=== PATIENT | female | born 1935 | race Caucasian/White ===

== ENCOUNTER → 2016-10-17 | Outpatient (CLI) | payer OTHER | LOC: FIMAGING 14:25 | DX: Z12.31 Encounter for screening mammogram for malignant neoplasm of breast (principal) | CPT/HCPCS: G0202 ==

== ENCOUNTER → 2017-01-12 | Outpatient (CLI) | payer OTHER | LOC: CIMAGING 14:33 | PROVIDERS: ATTEND Internal Medicine Nephrology | DX: N18.3 Chronic kidney disease, stage 3 (moderate) (principal) | CPT/HCPCS: 76770-PO ==

== ENCOUNTER → 2017-10-19 | Outpatient (CLI) | payer OTHER | LOC: FIMAGING 15:44 | PROVIDERS: ATTEND Family Medicine | DX: Z12.31 Encounter for screening mammogram for malignant neoplasm of breast (principal); Z80.3 Family history of malignant neoplasm of breast ==

== ENCOUNTER → 2018-03-15 | Outpatient (CLI) | payer OTHER | LOC: FIMAGING 10:01 | PROVIDERS: ATTEND Family Medicine | DX: Z13.820 Encounter for screening for osteoporosis (principal); M81.0 Age-related osteoporosis without current pathological fracture; Z87.81 Personal history of (healed) traumatic fracture ==

== ENCOUNTER 2018-06-07 16:05 | Emergency (ER) | payer OTHER ==
--- NOTE | 2018-06-07 16:34 | EDPHY ---
H & P Stated Complaint: dark stools Time Seen by Provider: 06/07/18 16:33 - Personal History Current Tetanus/Diphtheria Vaccine: Yes Current Tetanus Diphtheria and Acellular Pertussis (TDAP): Yes - Medical/Surgical History Hx Asthma: No Hx Chronic Respiratory Disease: No Hx Diabetes: No Hx Cardiac Disease: No Hx Renal Disease: Yes Hx Cirrhosis: No Hx Alcoholism: No Hx HIV/AIDS: No Hx Splenectomy or Spleen Trauma: No Other PMH: ORIF right hip 2005, urinary incont., hypothyroidism, depression, GERD, OP, - Social History Smoking Status: Never smoked Constitutional: Initial Vital Signs Temperature (C) 36.6 C 06/07/18 16:28 Heart Rate 73 06/07/18 16:28 Respiratory Rate 16 06/07/18 16:28 Blood Pressure 150/72 H 06/07/18 16:28 O2 Sat (%) 95 06/07/18 16:28 O2 Delivery Mode Room Air Allergies/Adverse Reactions: nitrofurantoin [From Macrobid] Allergy (Severe, Verified 06/07/18 16:25) Hives nitrofurantoin macrocrystalline [From Macrobid] Allergy (Severe, Verified 16:25) Hives Home Medications: Medication Instructions Recorded LEVOTHYROXINE SODIUM [Levoxyl 88 mcg PO DAILY 08/10/12 88mcg] Omeprazole 20 mg PO DAILY 08/10/12 Aspirin [Aspirin 81mg (OTC)] 81 mg PO DAILY 08/19/13 Cholecalciferol Vit D3 [Vitamin D3 1,000 units PO DAILY 08/19/13 1000 units (OTC)] Herbals/Supplements -Info Only 1 each PO AD 08/19/13 lamoTRIgine [Lamotrigine] 25 mg PO DAILY 08/19/13 Gabapentin [Neurontin 100 MG (RX)] 100 mg PO DAILY PRN 08/26/13 Mv,Ca,Min/FA/Herbal No.158 09/01/14 [[employer] Capsule] Oxybutynin Chloride 5 mg PO 09/01/14 PARoxetine HCL [Paxil 10mg (*)] 09/01/14 clonazePAM [Clonazepam] 09/01/14 Biotin 06/07/18 Iron 06/07/18 Medical Decision Making - Diagnostics Imaging Results: Imaging Impressions Abdomen CT 06/07/18 17:06 Impression: 1. Mild to moderate constipation. 2. No CT evidence of appendicitis, abscess or bowel obstruction. 3. There is some artifact along the superior anterior margin of the bladder related to right total hip replacement. Mass is felt to be possible but less likely. 4. Atrophic left kidney of indeterminate etiology. Findings discussed with Richard Gay MD at 17:57 hour, 06/07/2018. Imaging: Discussed imaging studies w/ call center director Radiologist, I viewed and interpreted images myself ED Course/Re-evaluation: CHIEF COMPLAINT: Melena HISTORY OF PRESENT ILLNESS: The patient is an 82 y/o female with a history of GERD on omeprazole who complains of black stool for the last 2 weeks. She cannot identify any obvious precipitating event. The first time she noticed a firm black stool. She is unsure how many episodes she is having daily, but reports the color has not changed since onset. She has intermittent associated crampy abdominal pain. She has never experienced these symptoms before. She denies lightheadedness, syncope, bleeding issues, dyspnea, chest pain, vomiting , fever, urinary symptoms. She takes a daily 81mg aspirin, but no anticoagulants. She has a history of a hysterectomy. REVIEW OF SYSTEMS: A comprehensive 10 system review of systems is otherwise negative aside from elements mentioned in the history of present illness and medical decision making. PHYSICAL EXAM: HR, BP, O2 Sat, RR. Temp noted General Appearance: Alert, well hydrated, appropriate, and non-toxic appearing. Head: Atraumatic without scalp tenderness or obvious injury Eyes: Pupils equal, round, reactive to light and accommodation, EOMI, no trauma , no injection. Nose: Atraumatic, no rhinorrhea, clear. Throat: There is no erythema or exudates, no lesions, normal tonsils, mucus membranes moist. Neck: Supple, nontender, no lymphadenopathy. Respiratory: No retractions, no distress, no wheezes, and no accessory muscle use. Lungs are clear to auscultation bilaterally. Cardiovascular: Regular rate and rhythm, no murmurs, rubs, or gallops. Good capillary refill all extremities. Gastrointestinal: Abdomen is soft, midepigastric tenderness, slightly distended upper abdomen, no masses, no rebound, no guarding, no peritoneal signs. Musculoskeletal: Normal active ROM of all extremities, atraumatic. Neurological: Alert, appropriate, and interactive. The patient has non-focal cranial nerves, motor, sensory, and cerebellar exam. Skin: No rashes, good turgor, no nodules on palpation. Past medical history: Urinary incontinence, hypothyroidism, depression, GERD - omeprazole Past surgical history: ORIF right hip 2005, hysterectomy, tummy tuck Family history: Noncontributory Social history: Nonsmoker, no alcohol, no drugs. at bedside. PCP: Dr. Andres. GI DIAGNOSTICS/PROCEDURES/CRITICAL CARE TIME: Abdominal CT: constipation DIFFERENTIAL DIAGNOSIS: The differential diagnosis for the patient's upper GI bleeding included but was not limited to ulcer disease, gastritis, Lucía- Smith tear, and esophageal varices. MEDICAL DECISION MAKING: This is an 82 y/o female with a history of GERD who presents with a 2-week history of melanotic stools and upper abdominal pain. She has mild midepigastric tenderness and a slightly distended upper abdomen on exam. She is afebrile and normotensive. Concern for upper GI bleed and possibly bowel obstruction. Plan for IV, labs, occult stool, abdominal CT. 1L IV NS ordered. Normal H&H. CT shows constipation. Reassessed patient and discussed findings. Offered admission for further evaluation of the cause of her melena, but she declined. She would like to return home and follow up with her GI as an outpatient. Recommended standard constipation care instructions in the meantime. Return precautions discussed. She is comfortable with this plan. 1829: Consulted with Dr. Funez, GI. Their office will see patient as an outpatient. - Data Points Laboratory Results: Laboratory Results 06/07/18 16:45 06/07/18 16:45 06/07/18 06/07/18 16:45 16:45 WBC 6.07 10^3/uL 10^3/uL (3.80-9.50) RBC 4.37 10^6/uL 10^6/uL (4.18-5.33) Hgb 13.8 g/dL g/dL (12.6-16.3) Hct 41.5 % % (38.0-47.0) MCV 95.0 fL fL (81.5-99.8) MCH 31.6 pg pg (27.9-34.1) MCHC 33.3 g/dL g/dL (32.4-36.7) RDW 12.1 % % (11.5-15.2) Plt Count 285 10^3/uL 10^3/uL (150-400) MPV 10.1 fL fL (8.7-11.7) Neut % (Auto) 50.3 % % (39.3-74.2) Lymph % (Auto) 37.1 % % (15.0-45.0) Morrill % (Auto) 7.4 % % (4.5-13.0) Eos % (Auto) 4.0 % % (0.6-7.6) Baso % (Auto) 1.0 % % (0.3-1.7) Nucleat RBC Rel Count 0.0 % % (0.0-0.2) Absolute Neuts (auto) 3.06 10^3/uL 10^3/uL (1.70-6.50) Absolute Lymphs (auto) 2.25 10^3/uL 10^3/uL (1.00-3.00) Absolute Monos (auto) 0.45 10^3/uL 10^3/uL (0.30-0.80) Absolute Eos (auto) 0.24 10^3/uL 10^3/uL (0.03-0.40) Absolute Basos (auto) 0.06 10^3/uL 10^3/uL (0.02-0.10) Absolute Nucleated RBC 0.00 10^3/uL 10^3/uL (0-0.01) Immature Gran % 0.2 % % (0.0-1.1) Immature Gran # 0.01 10^3/uL 10^3/uL (0.00-0.10) Sodium 141 mEq/L mEq/L (135-145) Potassium 4.8 mEq/L mEq/L (3.3-5.0) Chloride 105 mEq/L mEq/L (97-110) Carbon Dioxide 28 mEq/l mEq/l (22-31) Anion Gap 8 mEq/L mEq/L (6-14) BUN 29 mg/dL H mg/dL (7-23) Creatinine 1.1 mg/dL H mg/dL (0.6-1.0) Estimated GFR 47 Glucose 97 mg/dL mg/dL (70-100) Calcium 9.7 mg/dL mg/dL (8.5-10.4) Total Bilirubin 0.3 mg/dL mg/dL (0.1-1.4) Conjugated Bilirubin 0.2 mg/dL mg/dL (0.0-0.5) Unconjugated Bilirubin 0.1 mg/dL mg/dL (0.0-1.1) AST 25 IU/L IU/L (14-46) ALT 26 IU/L IU/L (9-52) Alkaline Phosphatase 66 IU/L IU/L (38-126) Total Protein 7.7 g/dL g/dL (6.3-8.2) Albumin 4.7 g/dL g/dL (3.5-5.0) Lipase 198 IU/L IU/L (23-300) Departure - Departure Disposition: Home, Routine, Self-Care Clinical Impression: Melena Constipation Qualifiers: Constipation type: other constipation type Qualified Code(s): K59.09 - Other constipation Condition: Good Instructions: Constipation (ED), Melena (ED) Additional Instructions: 1. Combine one bottle of Miralax with one gallon of Gatorade. Drink the first half in 15 minutes. Then drink the remaining quantity in 15-minute increments over the next hour until gone. Wait until you are at home near a toilet to start this procedure 2. Take magnesium citrate as directed. 3. Increase fluid and fiber intake in general. 4. Follow up with Dr. Reyes next week without fail. 5. Return to the ED for lightheadedness, fainting, shortness of breath, chest pain, or other worsening of condition. Referrals: ASHLEY ANDRES [Primary Care Provider] - As per Instructions Juan Reyes MD [Medical Doctor] - As per Instructions Report Scribed for: Richard Gay Report Scribed by: Kizzy Rdz Date of Report: 06/07/18 Time of Report: 17:02
[2018-06-07] MEDS ORDERED: IOPAMIDOL (ISOVUE-300) 100 ML BTL ONE (17:13)
[2018-06-07 18:09] LABS: PLATELET COUNT 285 10^3/uL (150-400)
[2018-06-07 18:48] VITALS: BP 135/72
[2018-06-07] MEDS ORDERED: MAGNESIUM CITRATE 300 ML BOTTLE PO ONE (18:53)
[2018-06-07] MEDS ORDERED: MAGNESIUM CITRATE 300 ML BOTTLE ONE (18:53)
== END 2018-06-07 18:58 | disposition home or self-care (01) ==
DX: K92.1 Melena (principal); K59.09 Other constipation; Z87.19 Personal history of other diseases of the digestive system
CPT/HCPCS: 74177; 99285; Q9967

== ENCOUNTER → 2018-10-21 | Outpatient (CLI) | payer OTHER | LOC: EMCIMAGING 13:57 | PROVIDERS: ATTEND Family Medicine | DX: Z12.31 Encounter for screening mammogram for malignant neoplasm of breast (principal) | CPT/HCPCS: 77067-PN ==